=== PATIENT | male | born 1935 | race Caucasian/White ===

== ENCOUNTER 2023-11-05 09:46 | Emergency (ER) | payer OTHER, MEDICARE ==
[~2023-11-05] VITALS: Ht 185.4 cm; Wt 91.6 kg
[2023-11-05 09:57] VITALS: BP 142/76; PULSE 78; RESP 18; O2SAT 98
== END 2023-11-05 10:16 | disposition left against medical advice (07) ==
LOC: EDH 09:46
DX: H54.7 Unspecified visual loss (principal); Z53.21 Procedure and treatment not carried out due to patient leaving prior to being seen by health care provider
CPT/HCPCS: 99281